=== PATIENT | male | born 1970 | race Caucasian/White ===

== ENCOUNTER 2022-01-27 09:08 | Day surgery (SDC) | payer BC ==
--- NOTE | 2022-01-26 12:41 | HP ---
DATE OF SURGERY: 01/27/2022 HISTORY OF PRESENT ILLNESS: The patient presents for screening colonoscopy. Denies any signs or symptoms at this time. He has one sister who had some atypical polyps in the past. PAST MEDICAL HISTORY: None. PAST SURGICAL HISTORY: None reported. ALLERGIES: NKDA. MEDICATIONS: None reported. FAMILY HISTORY: None reported. SOCIAL HISTORY: None reported. REVIEW OF SYSTEMS: CONSTITUTIONAL: Denies fever or chills. CHEST: Denies shortness of breath. CVS: Denies chest pain. ABDOMEN: Denies abdominal pain. PHYSICAL EXAMINATION: GENERAL: No acute distress. CHEST: Nonlabored. No shortness of breath. CVS: Regular rate and rhythm. ABDOMEN: Soft, nontender. IMPRESSION: Screening. PLAN: Colonoscopy with Dr. José Luis Tellez. As dictated by Josefina Bray NP.
[~2022-01-27 09:08] MED LIST: Lactated Ringers 1,000 ML IV SCH
[2022-01-27] MEDS ORDERED: Lactated Ringers 1,000 ML IV ONE (09:53)
[2022-01-27] MEDS ORDERED: DIPRIVAN 200 MG/20 ML IV ONE (10:37)
[2022-01-27] MEDS ORDERED: Versed 2 MG/2 ML Injection ONE (10:37)
[2022-01-27] MEDS ORDERED: Xylocaine-Mpf 2% 5 Ml Vial ONE (10:37)
[2022-01-27 11:50] VITALS: BP 147/82; PULSE 55; O2SAT 100
--- NOTE | 2022-01-27 13:56 | OP ---
SURGERY DATE/TIME: 01/27/2022 1043 PREOPERATIVE DIAGNOSIS: Screening. POSTOPERATIVE DIAGNOSIS: Normal. PROCEDURE: Colonoscopy complete to cecum with normal findings. SURGEON: José Luis Tellez M.D. ANESTHESIA: MAC. COMPLICATIONS: None. CONDITION: Stable. INDICATION: Patient presents for screening. Anticipated follow up five years. He does have one family situation with his sister with major colon issues. DESCRIPTION OF PROCEDURE: Taken to endoscopy. Left lateral decubitus position. Anal digital examination satisfactory. Prostate was high and basically prostate young and normal. Scope introduced. Anal and rectal satisfactory. True rectal valve satisfactory. Scope advanced over to the cecum. Base of the cecum, ileocecal valve and appendiceal orifice were all normal. Ascending, hepatic, transverse, splenic, descending, sigmoid, rectum, anus normal. Prep score was excellent. Withdrawal time about five minutes. No findings present. Follow up five years. He does have a slight family history of colon disorder.
== END 2022-01-27 11:45 | disposition home or self-care (01) ==
LOC: SDC 09:08
PROVIDERS: ATTEND Surgery
DX: Z12.11 Encounter for screening for malignant neoplasm of colon (principal); Z83.71 Family history of colonic polyps
CPT/HCPCS: J2250; J2704